=== PATIENT | male | born 2005 | race Caucasian/White ===

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

== ENCOUNTER 2024-10-19 11:54 | Emergency (ER) | payer OTHER ==
[~2024-10-19] VITALS: Ht 180.3 cm; Wt 81.2 kg
[2024-10-19] MEDS: PROPARACAINE 0.5% OPHTH SOL 15ML OS ONE (14:20)
[2024-10-19] MEDS: FLUORESCEIN OPHTH 1MG STRIP OS ONE (14:20)
[2024-10-19 15:51] VITALS: BP 121/67; TEMP 97.8; O2SAT 99
== END 2024-10-19 15:53 | disposition home or self-care (01) ==
LOC: M ED 11:54
DX: H57.12 Ocular pain, left eye (principal); F17.290 Nicotine dependence, other tobacco product, uncomplicated; F10.10 Alcohol abuse, uncomplicated